=== PATIENT | male | born 1945 | race Caucasian/White ===

== ENCOUNTER 2017-12-05 06:30 | Day surgery (SDC) | payer OTHER ==
[~2017-12-05 06:30] MED LIST: GLIPIZIDE5 MG; GLUCOPHAGE XR500 MG; VASOTEC5 MG
== END 2017-12-05 11:45 | disposition home or self-care (01) ==
LOC: AMB-ENDOS 06:30
DX: C19 Malignant neoplasm of rectosigmoid junction (principal); K92.1 Melena

== ENCOUNTER 2018-12-15 05:52 | Day surgery (SDC) | payer OTHER ==
[~2018-12-15 05:52] MED LIST changes: +FENOFIBRATE160 MG PO; +GLIPIZIDE5 MG PO; +METFORMIN HCL500 MG PO; +VASOTEC5 MG PO; +ZOCOR20 MG PO
[2018-12-15] MEDS ORDERED: ULTRACET PO (11:46)
== END 2018-12-15 12:30 | disposition home or self-care (01) ==
LOC: CIR.AMB 05:52
DX: C19 Malignant neoplasm of rectosigmoid junction (principal)